=== PATIENT | female | born 2000 | race American Indian/Alaskan Native ===

== ENCOUNTER 2021-02-03 14:21 | Emergency (ER) | payer MEDICAID ==
[2021-02-03] MEDS ORDERED: KETOROLAC 30 MG/1 ML INJ IV ONE (15:35)
[2021-02-03] MEDS ORDERED: SODIUM CHLORIDE 0.9% 1000 ML 1,000 ML IV ONE (15:35)
[2021-02-03] MEDS ORDERED: METOCLOPRAMIDE 10 MG/2 ML INJ IV ONE (15:35)
[2021-02-03 15:44] VITALS: BP 102/53
--- NOTE | 2021-02-03 16:54 | Emergency Department Report ---
ED Headache HPI - General Chief Complaint: Headache Stated Complaint: HEADACHE Time Seen by Provider: 02/03/21 15:17 - History of Present Illness Initial Comments: 20-year-old female presents to ED with complaint of headache. Patient reports history of migraine headaches. She states this pain feels similar in nature to her previous headaches. She states she is having pain in the back of the head, radiating forward and behind her eyes. She reports nausea, no vomiting. She denies any fever. Patient states she did not take anything for pain prior to coming to the ED. She denies any trauma. Timing/Duration: 4-6 hours Quality: moderate Modifying Factors: worse with: movement Associated Symptoms: nausea/vomiting. denies: facial pain, fever/chills, stiff neck, vision changes, weakness Allergies/Adverse Reactions: Allergies No Known Allergies Allergy (Unverified 03/11/20 22:49) Home Medications: Ambulatory Orders Vitamin 1 tab PO DAILY 03/11/20 oxyCODONE /ACETAMINOPHEN [Percocet 5/325 mg] 1 tab PO Q6H PRN 30 Days #30 tablet 03/14/20 Butalb/Acetamin/Caff 50-325-40 [Fioricet] 1 tab PO Q6HR PRN #10 tab 02/03/21 ED Review of Systems ROS: Stated complaint: HEADACHE Other details as noted in HPI Comment: All other systems reviewed and negative Constitutional: denies: chills, fever Gastrointestinal: nausea. denies: vomiting Neurological: headache. denies: weakness, numbness ED Past Medical Hx - Past Medical History Previous Medical History?: Yes Hx Hypertension: No Hx Heart Attack/AMI: No Hx Diabetes: No Hx Deep Vein Thrombosis: No Hx Renal Disease: No Hx Sickle Cell Disease: No Hx Seizures: No Hx Asthma: No Hx HIV: No Additional medical history: Migraines - Social History Smoking Status: Never Smoker - Medications Home Medications: Home Medications Medication Instructions Recorded Confirmed Last Taken Type Vitamin 1 tab PO DAILY 03/11/20 03/11/20 03/11/20 History oxyCODONE /ACETAMINOPHEN [Percocet 1 tab PO Q6H PRN 30 Days #30 tablet 03/14/20 Unknown Rx 5/325 mg] Butalb/Acetamin/Caff 50-325-40 1 tab PO Q6HR PRN #10 tab 02/03/21 Unknown Rx [Fioricet] ED Physical Exam - General Limitations: No Limitations General appearance: alert, in no apparent distress (Patient currently looking on her cell phone, nontoxic-appearing) - Head Head exam: Present: atraumatic, normocephalic - Eye Eye exam: Present: normal appearance, EOMI - ENT ENT exam: Present: mucous membranes moist - Neck Neck exam: Present: normal inspection, full ROM. Absent: meningismus - Respiratory Respiratory exam: Present: normal lung sounds bilaterally. Absent: respiratory distress - Cardiovascular Cardiovascular Exam: Present: normal rhythm, bradycardia - GI/Abdominal GI/Abdominal exam: Present: soft. Absent: distended, tenderness - Extremities Exam Extremities exam: Present: normal inspection - Neurological Exam Neurological exam: Present: alert, oriented X3, CN II-XII intact. Absent: motor sensory deficit - Psychiatric Psychiatric exam: Present: normal affect, normal mood - Skin Skin exam: Present: warm, dry, intact, normal color ED Course Vital Signs 02/03/21 02/03/21 14:28 15:42 Temperature 98 F 98.6 F Pulse Rate 58 L 66 Respiratory 16 16 Rate Blood Pressure 124/96 102/53 [Right] O2 Sat by Pulse 100 100 Oximetry - Reevaluation(s) Reevaluation #1: 02/03/21 16:53 Patient states she is feeling much better at this time following IV fluids and medications. ED Medical Decision Making - Medical Decision Making 20-year-old female presents to ED with headache. No neuro deficits on exam. Vital signs are normal. Patient given IV fluids, Toradol, Reglan here in the ED. She reports resolution of her headache. Patient will be discharged at this time with prescriptions. Outpatient follow-up advised, return precautions given. - Differential Diagnosis Tension headache, migraine headache, cluster headache Critical care attestation.: If time is entered above; I have spent that time in minutes in the direct care of this critically ill patient, excluding procedure time. ED Disposition Clinical Impression: Acute headache Disposition: 01 HOME / SELF CARE / HOMELESS Is pt being admited?: No Condition: Stable Instructions: Migraine Headache, [id number], Tension Headache, Adult, [id number] Prescriptions: Butalb/Acetamin/Caff 50-325-40 [Fioricet] 1 tab PO Q6HR PRN #10 tab PRN Reason: Headache Referrals: PRIMARY CARE, [Primary Care Provider] - 3-[address] [facility] [Provider Group] - 3-5 Days Time of Disposition: 16:54
== END 2021-02-04 06:04 | disposition home or self-care (01) ==
LOC: ED 14:21
DX: G43.909 Migraine, unspecified, not intractable, without status migrainosus (principal)
CPT/HCPCS: 96361; 96374; 96375; 99283; J1885; J2765; J7030